=== PATIENT | female | born 1955 | race Caucasian/White ===

== ENCOUNTER 2023-01-16 09:08 | Outpatient (CLI) | payer MEDICARE, OTHER | END 2023-01-16 09:09 | disposition home or self-care (01) | LOC: CSHULT 09:08 | PROVIDERS: ATTEND Nurse Practitioner Family | DX: N95.0 Postmenopausal bleeding (principal); D25.9 Leiomyoma of uterus, unspecified | CPT/HCPCS: 76856 ==